=== PATIENT | female | born 1935 | race Two or more races ===

== ENCOUNTER 2017-06-11 07:02 | Day surgery (SDC) | payer OTHER, MEDICAID ==
[~2017-06-11 07:02] MED LIST: BALANCED SALT IRRIG SOLN COMB1 500 ML, VANCOMYCIN FOR BSS PLUS 10 MG, GENTAMICIN SULFAT... IO ONE
[2017-06-11] MEDS ORDERED: ONDANSETRON 4 MG/2 ML VIAL IV ONE (07:03)
[2017-06-11] MEDS ORDERED: PHENYLEPHRINE 2.5% OPHT DROP 2 ML BOTTLE ONE (07:23)
[2017-06-11] MEDS ORDERED: TROPICAMIDE 1% OPHT DROP 3 ML BOTTLE ONE (07:23)
[2017-06-11] MEDS ORDERED: CYCLOPENTOLATE 1% OPHT DROP 2 ML BOTTLE ONE (07:23)
[2017-06-11] MEDS ORDERED: CIPROFLOXACIN 0.3% OPHT DROP 2.5 ML BOTTLE ONE (07:23)
[2017-06-11] MEDS ORDERED: KETOROLAC 0.5% OPHT DROP 3 ML BOTTLE ONE (07:24)
[2017-06-11] MEDS ORDERED: NEO/POLYMYX B/DEXAME OPHT OINT 3.5 GM TUBE ONE (07:53)
[2017-06-11] MEDS ORDERED: TETRACAINE HCL 0.5% OPHT DROP 2 ML BOTTLE ONE (07:53)
[2017-06-11] MEDS ORDERED: LIDOCAINE-MPF 2% 5 ML VIAL ONE (07:53)
[2017-06-11] MEDS ORDERED: TIMOLOL MALEATE 0.5% OPHT DROP 5 ML BOTTLE ONE (07:53)
[2017-06-11] MEDS ORDERED: LIDOCAINE HCL-MPF 1% 5 ML VIAL ONE (07:53)
[2017-06-11] MEDS ORDERED: BUPIVACAINE PF 0.5% 30 ML VIAL ONE (07:54)
[2017-06-11] MEDS ORDERED: ACETYLCHOLINE CHLORIDE 1% OPHT 1 EA KIT ONE (07:54)
[2017-06-11] MEDS ORDERED: BALANCED SALT IRRIG SOLN COMB2 15 ML IRRIG.SOLN ONE (07:54)
[2017-06-11] MEDS ORDERED: EPINEPHRINE 1 MG/1 ML AMP ONE (07:54)
[2017-06-11] MEDS ORDERED: HYALURONATE SODIUM 8.5 MG/0.85 ML DISP.SYRIN ONE (07:55)
[2017-06-11] MEDS ORDERED: HYALURONIDASE,OVINE 200 UNITS/ML VIAL ONE (07:55)
[2017-06-11] MEDS ORDERED: HYALURONATE SODIUM 12.8 MG/0.8 ML DISP.SYRIN ONE (07:55)
[2017-06-11] MEDS ORDERED: BALANCED SALT IRRIG SOLN COMB1 500 ML ONE (08:14)
[2017-06-11] MEDS ORDERED: MOXIFLOXACIN HCL 3 ML OPHT DROPS ONE (08:20)
[2017-06-11] MEDS ORDERED: MIDAZOLAM HCL 2 MG/2 ML VIAL ONE (09:15)
[2017-06-11] MEDS ORDERED: FENTANYL CITRATE 100 MCG/2 ML AMPUL ONE (09:15)
== END 2017-06-11 11:45 | disposition home or self-care (01) ==
LOC: DS 07:02
PROVIDERS: ATTEND Ophthalmology
DX: H26.8 Other specified cataract (principal); I48.91 Unspecified atrial fibrillation; I10 Essential (primary) hypertension; M81.0 Age-related osteoporosis without current pathological fracture; Z79.899 Other long term (current) drug therapy
CPT/HCPCS: A4663; J0171; J1580; J2250; J2405; J3010; J3370; J3471; J3490; J7120; J7321; V2632